=== PATIENT | female | born 1960 | race Caucasian/White ===

== ENCOUNTER 2018-11-15 13:16 | Emergency (ER) | payer MEDICAID ==
[~2018-11-15] VITALS: Ht 170.2 cm; Wt 71.7 kg
[2018-11-15 13:20] VITALS: BP_SYST 148
--- NOTE | 2018-11-15 13:22 | NUR ---
Placed in room 07 . Placed on shelter monitor, blood pressure machine and pulse oximeter. To gown for exam. Side rails up.
--- NOTE | 2018-11-15 13:22 | NUR ---
Patient arrived A[facility] BLS with c/o pain with breathing and sharp pain to the left ribcage x3 days and hotflashes x "a few years." patient states she smokes marijuana to ease her pain x 4 times a week. patient has a history of ADD, Substance abuse, Bipolar and depression. patient states she is currently being treated for an Upper Respiratory infection. Lungs are bilat CTA. patient believes the pain is caused by stress and is tearful. Patient currently lives in a transitional assisted waiting [address] housing. no other complaint or injury at this time.
--- NOTE | 2018-11-15 14:37 | NUR ---
X-ray at bedside.
[2018-11-15 14:44] LABS: BASOPHILS # (AUTO) 0.1 K/uL (0.0-0.2); BASOPHILS % (AUTO) 0.6 % (0.0-2.0); EOSINOPHILS # (AUTO) 0.1 K/uL (0.0-0.4); EOSINOPHILS % (AUTO) 1.6 % (0.0-4.0); HEMATOCRIT 40.2 % (36-48); HEMOGLOBIN 13.1 g/dL (12.0-16.0); MEAN CORPUSCULAR HEMOGLOBIN 28 pg (27-31); MEAN CORPUSCULAR HGB CONC 33 % (32-36); MEAN CORPUSCULAR VOLUME 86 fL (79.0-98.0); MONOCYTES # (AUTO) 0.7 K/uL (0.0-1.0); MONOCYTES % (AUTO) 7.6 % (1.7-9.3); NEUTROPHILS # (AUTO) 5.2 K/uL (1.8-7.7); NEUTROPHILS % (AUTO) 57.2 % (40.0-70.0); PLATELET COUNT (AUTO) 318 K/uL (130-430); RED BLOOD CELL COUNT(AUTO) 4.69 MIL/uL (4.2-6.2); RED CELL DISTRIBUTION WIDTH 13.2 % (9.0-15.0); WHITE BLOOD COUNT (AUTO) 9.1 K/uL (4.8-10.8)
--- NOTE | 2018-11-15 14:55 | NUR ---
ER at bedside examining patient.
[2018-11-15 14:57] LABS: ANION GAP 9 (5-15); CALCIUM 9.3 mg/dL (8.4-11.0); CHLORIDE 103 mmol/L (98-107); CREATININE 1.12 mg/dL (0.55-1.30); GFR AFRICAN AMERICAN 64 mL/min (>90); GLUCOSE 100 mg/dL (70-99); POTASSIUM 4.6 mmol/L (3.5-5.1); SODIUM SERUM 139 mmol/L (136-145); UREA NITROGEN, BLOOD 20 mg/dL (8-21)
[2018-11-15 15:05] LABS: ALANINE AMINOTRANSFERASE 30 U/L (12-78); ALBUMIN 3.3 g/dL (3.4-4.8); ASPARTATE AMINOTRANSFERASE 16 U/L (10-37); TOTAL BILIRUBIN 0.2 mg/dL (0.0-1.0)
--- NOTE | 2018-11-15 15:14 | NUR ---
Report given to Sonny LOMAS
[2018-11-15] MEDS ORDERED: NACL 0.9% 1,000 ML IV ONE (15:30)
[2018-11-15] MEDS ORDERED: fentaNYL CITRATE/PF 100 MCG/2 ML AMP IVP ONE ×2 (15:30→16:00)
--- NOTE | 2018-11-15 15:32 | NUR ---
Patient moaning and crying. Visibly upset do to pain 10/10. I notified the patient that i adiel be administering medication. I encouraged deep breathing and self calming while I prepare her medication.
[2018-11-15] MEDS ORDERED: LORazepam 2 MG/ML VIAL (FOR ER USE) IVP ONE (16:00)
--- NOTE | 2018-11-15 16:52 | NUR ---
Patient given written and verbal discharge instructions and verbalizes understanding. ER MD discussed with patient the results and treatment provided. Patient in stable condition. ID arm band removed. IV catheter removed intact and dressing applied, no active bleeding. Rx of Motrin & Medrol Dose lola given. Patient educated on pain management and to follow up with PMD. Pain Scale . Opportunity for questions provided and answered. Medication side effect fact sheet provided.
[2018-11-15 16:55] VITALS: BP_SYST 156
== END 2018-11-15 16:55 | disposition home or self-care (01) ==
LOC: SED 13:16
DX: R07.89 Other chest pain (principal); R03.0 Elevated blood-pressure reading, without diagnosis of hypertension; M19.90 Unspecified osteoarthritis, unspecified site; Z88.5 Allergy status to narcotic agent
CPT/HCPCS: 36415; 71046; 80053; 84484; 85025; 93005; 96374; 96375; 96376; 99284; J2060; J3010; J7030

== ENCOUNTER 2019-01-24 23:41 | Emergency (ER) | payer MEDICAID ==
[~2019-01-24] VITALS: Ht 170.2 cm; Wt 74.8 kg
== END 2019-01-25 01:11 | disposition home or self-care (01) ==
LOC: SED 23:41
DX: B86 Scabies (principal); M19.90 Unspecified osteoarthritis, unspecified site; F17.200 Nicotine dependence, unspecified, uncomplicated; Z90.49 Acquired absence of other specified parts of digestive tract; Z88.5 Allergy status to narcotic agent
CPT/HCPCS: 99282